=== PATIENT | female | born 1935 | race Two or more races ===

== ENCOUNTER 2025-02-08 19:34 | Inpatient (IN) | payer OTHER ==
[~2025-02-08] VITALS: Ht 152.4 cm; Wt 45.4 kg
[2025-02-08 19:45] VITALS: TEMP 96.8
[2025-02-08] MEDS: HEPARIN 1,000 UNITS/ml 1ML VIAL IV ONE (19:57)
[2025-02-08] MEDS: ATROPINE SULF 1 MG/10ml SYR IV ONE (19:57)
[2025-02-08] MEDS: InsuLIN REG 1unit/0.01ml Soln (100units/ml) IV ONE (19:57)
[2025-02-08] MEDS: HEPARIN 1,000 UNITS/ml 1ML VIAL ONE (19:58)
[2025-02-08] MEDS: DOPamine 1600MCG/ML D5W 250 ML IV ONE ×2 (19:58)
[2025-02-08] MEDS: LIDOCAINE 2%HCL (LOCAL ANESTH.) INJ 20ML MDV ONE (20:03)
[2025-02-08] MEDS: MIDAZOLAM HCL 2MG/2ML 2ml VIAL (1mg/ml) ONE (20:03)
[2025-02-08] MEDS: VERAPAMIL 2.5MG/ML INJ 2ML VIAL IV ONE (20:03)
--- NOTE | 2025-02-08 20:05 | DVH ---
EXAM: XR Chest, 1 View CLINICAL INDICATION: CP TECHNIQUE: Frontal view of the chest. COMPARISON: None FINDINGS: LUNGS AND PLEURAL SPACES: Unremarkable. No consolidation. No pneumothorax. HEART: Cardiomegaly without overt failure. MEDIASTINUM: Unremarkable. Normal mediastinal contour. BONES/JOINTS: Unremarkable. No acute fracture. OTHER FINDINGS: . . IMPRESSION: Cardiomegaly without overt failure.
[2025-02-08] MEDS: ANGIOMAX 250 MG VIAL IV ONE (20:15)
--- NOTE | 2025-02-08 20:15 | DVHINCON2 ---
Date of service: February 08, 2025 History of Present Illness 89 y o F with dementia, DM , frailty brought in for inferior stemi in slow afib. pt is DNR and DNI and daughter at bedside. Past Medical History reviewed Allergies: Coded Allergies: Penicillins (Verified Allergy, Unknown, 02/08/25) Review of Systems not obtained Vital Signs Vital Signs Date Time Temp Pulse Resp B/P (MAP) Pulse Ox O2 Delivery O2 Flow Rate FiO2 02/08/25 19:58 98/54 02/08/25 19:41 96.9 48 18 96 96.9 Physical Exam somnolent altered , lethargic s1 s2 irregular bradycardic diffuse rhonchi abd soft nt/nd no edema fral Assessment STEMI slow afib shock dementia altered mental status DM , severe hyperglycemia Plan/Recommendation pt is extremely high risk for cath at this time and chance of survival is potentially quite poor after a long talk with daugther, family doesnt want to pursue aggressive measures they want a manager client service to come they want meds for now, dopamine gtt and atropine DNI pain control consider hospice home ideally per family if pt becomes HD stable they very clearly understand not going to farm laborer and result in given inferior stemi and risk of CHB RN with me at bedside dr riggins at bedside 90 mins critical care time spent Plan discussed with: Patient, Daughter, Other (rn) JANAE WRIGHT MD February 08, 2025 20:15
[2025-02-08 20:28] LABS: Basophils # (auto) 0 10 ^3/uL (0-0.2); Basophils % (auto) 0.2 % (0.0-2.0); Eosinophils # (auto) 0 10 ^3/uL (0-0.8); Hematocrit 41.3 % (36.0-46.0); Hemoglobin 13.2 g/dL (12.2-16.2); Lymphocytes # (auto) 0.9 10 ^3/uL (0.4-5.4); Lymphocytes % (auto) 8.9 % (10.0-50.0); Mean Corpuscular Hemoglobin 29.4 pg (28.0-32.0); Mean Corpuscular Hgb Conc. 32.1 g/dL (32.0-36.0); Mean Corpuscular Volume 91.6 fL (80.0-100.0); Monocytes # (auto) 0.3 10 ^3/uL (0-1.3); Monocytes % (auto) 2.6 % (0.0-12.0); Neutrophils # (auto) 8.8 10 ^3/uL (1.6-8.6); Neutrophils % (auto) 88.3 % (37.0-80.0); Nucleated Red Blood Cells % 0.1 %; Platelet Count (auto) 157 10^3/uL (140-450); Red Blood Cells 4.51 10^6/uL (4.0-5.20); Red Cell Distribution Width 14.1 % (11.8-14.3)
[2025-02-08] MEDS: NOREPINEPHRINE 8 MG/250ML KIT 250 ML IV SCH (20:30)
[2025-02-08] MEDS: fentaNYL CITRATE 100 MCG/2 ML VL ONE (20:37)
[2025-02-08 20:46] LABS: Albumin 3.6 g/dL (3.2-4.8); Alkaline Phosphatase 112 U/L (46-116); Anion Gap 18 (5-15); BUN/Creatinine Ratio 13.6 (10.0-20.0); Blood Urea Nitrogen 16 mg/dL (9-23); Calcium 9.1 mg/dL (8.7-10.4); Chloride 102 mmol/L (98-107); INR 1.07 (0.9-1.15); Magnesium 2.1 mg/dL (1.6-2.6); Partial Thromboplastin Time 25.9 SEC (24.5-34.5); Potassium 4.8 mmol/L (3.5-5.1); Prothrombin Time 11.3 sec (9.3-11.8); Total Protein 5.7 g/dL (5.7-8.2)
[2025-02-08] MEDS: DOBUTamine 1000MCG/ML 250 ML IV ONE (20:46)
[2025-02-08 20:54] VITALS: PULSE 65; RESP 12; O2SAT 97
--- NOTE | 2025-02-08 21:02 | ED.PDOC ---
History of Present Illness HPI Comments 89-year-old female who comes in with chief complaint of chest pain today. According to the family, the patient is started to complain of some chest pain at approximately 2:30 p.m. this afternoon. The patient described the chest pain as crushing in nature. She does have a history of dementia and is somewhat of a poor historian but was able to describe her chest pain. She is complaining of some shortness a breath. There has been some mild nausea as well as vomiting. Patient is having some diaphoresis as well as somewhat pale and when the paramedics placed her on the monitor, the patient was bradycardic in the 30s. The patient was also hypotensive and was given some normal saline and the blood pressure did come up but never above 90s systolic. For the nausea, the patient was given Zofran 4 mg IV push. The patient was also given aspirin 324 mg by mouth EN route. EN route, the patient also had an Accu-Chek of 524. Upon arrival, the patient is still somewhat pale. An EKG was done immediately and a STEMI was called after sending the EKG to Dr. Caruso. Chief Complaint: STEMI Time Seen by MD: 19:36 Reviewed Notes: Nurses Notes, Contract Paralegal Notes, Medications, Allergies (Allergies to penicillin) Allergies: Coded Allergies: Penicillins (Verified Allergy, Unknown, 02/08/25) Information Source: Patient, Emergency Med Personnel Mode of Arrival: EMS Severity: Moderate Timing: Hours Duration: Since onset Prehospital treatment: 12 Lead EKG, Accucheck (524), ASA, Beef Lugger, IVF, Other (Normal saline bolus) Location: Left-sided chest pain that has crushing in nature Associated signs and symptoms Shortness a breath with nausea and vomiting so as well as pale and being di aphoretic Past Medical History PAST MEDICAL HISTORY: Dementia, DM, HTN Surgical History: Unobtainable TECHNICIAN BIOLOGICAL HEALTH History: No Pertinent TECHNICIAN BIOLOGICAL HEALTH History Family History Family History: No family hx of Cancer, No family hx of DM, No family hx of Heart anshul Social History Smoker: Non-Smoker Alcohol: Denies ETOH Use Drugs: Denies Drug Use Lives In: Home Constitutional: denies: chills, diaphoresis, fatigue, fever, malaise, sweats, weakness, others EENTM: denies: blurred vision, double vision, ear bleeding, ear discharge, ear drainage, ear pain, ear ringing, eye pain, eye redness, hearing loss, mouth pain, mouth swelling, nasal discharge, nose bleeding, nose congestion, nose pain, photophobia, tearing, throat pain, throat swelling, voice changes, others Respiratory: reports: shortness of breath; denies: cough, hemoptysis, orthopnea, SOB at rest, SOB with excertion, stridor, wheezing, others Cardiovascular: reports: chest pain, syncope; denies: dizzy spells, diaphoresis, Dyspnea on exertion, edema, irregular heart beat, left arm pain, lightheadedness, palpitations, PND, others Gastrointestinal: denies: abdomen distended, abdominal pain, blood streaked b owels, constipated, diarrhea, dysphagia, difficulty swallowing, hematemesis, melena, nausea, poor appetite, poor fluid intake, rectal bleeding, rectal pain, vomiting, others Genitourinary: denies: abnormal vagina bleeding, burning, dyspareunia, dysuria, flank pain, frequency, hematuria, incontinence, pain, , vagina discharge, urgency, others Neurological: denies: dizziness, fainting, headache, left sided numbness, left sided weakness, numbness, paresthesia, pre-existing deficit, right sided numbness, right sided weakness, seizure, speech problems, tingling, tremors, weakness, others Musculoskeletal: denies: back pain, gout, joint pain, joint swelling, muscle pain, muscle stiffness, neck pain, others Integumetry: denies: bruises, change in color, change in hair/nails, dryness, laceration, lesions, lumps, rash, wounds, others Allergic/Immunocompromised: denies: Difficulty Healing, Frequent Infections, Hives, Itching, others Hematologic/Lymphatic: denies: anemia, blood clots, easy bleeding, easy brui sing, swollen glands, others Endocrine: denies: excessive hunger, excessive sweating, excessive thirst, ex cessive urination, flushing, intolerance to cold, intolerance to heat, unexplained weight gain, unexplained weight loss, others Psychiatric: denies: anxiety, bipolar disorder, depression, hopeless, panic disorder, schizophrenia, sleepless, suicidal, others Physical Exam General Appearance: Moderate Distress, Thin HEENT: Pale Conjuntivae (L), Pale Conjuntivae (R), Pharynx Normal, TMs Normal Neck: Full Range of Motion, Non-Tender, Normal, Normal Inspection Respiratory: Chest Non-Tender, Lungs Clear, No Accessory Muscle Use, No Respiratory Distress, Normal Breath Sounds Cardiovascular: Bradycardia, No Edema, No JVD, No Murmur, No Gallop Breast Exam: Deferred Gastrointestinal: No Organomegaly, Non Tender, No Pulsatile Mass, Normal Bowel Sounds, Soft Genitalia: Deferred Pelvic: Deferred Rectal: Deferred Extremities: No calf tenderness, Normal capillary refill, No pedal edema Musculoskeletal : Apperance: Normal Neurologic: supervisor fruit grading II-XII nml as Tested, Motor Weakness, Normal Affect, Normal Mood, No Sensory Deficits, Other (The patient is somewhat alert) Cerebellar Function: Unable to Test Reflexes: Normal Skin: Dry, Pallor, Warm Lymphatic: No Adenopathy Was a procedure done? Was a procedure done?: No EKG EKG : Pulse Rate (adult): 40 [place]: Normal Cardiac Rhythm: SB ST: Inf, Infarct (Inferior) Differential Dx Considerations may include: Myocardial infarction, dehydration, generalized weakness X-Ray, Labs, Meds, VS Vital Signs Date Time Temp Pulse Resp B/P (MAP) Pulse Ox O2 Delivery O2 Flow Rate FiO2 02/08/25 20:00 65 02/08/25 19:58 98/54 02/08/25 19:41 96.9 48 18 89/46 (60) 96 96.9 02/08/25 19:34 56 Lab Test 02/08/25 19:54 Range/Units White Blood Count Pending Red Blood Count Pending Hemoglobin Pending Hematocrit Pending Mean Corpuscular Volume Pending Mean Corpuscular Hemoglobin Pending Mean Corpuscular Hemoglobin Concent Pending Red Cell Distribution Width Pending Platelet Count Pending Mean Platelet Volume Pending Neutrophils (%) (Auto) Pending Lymphocytes (%) (Auto) Pending Monocytes (%) (Auto) Pending Basophils (%) (Auto) Pending Neutrophils # (Auto) Pending Lymphocytes # (Auto) Pending Monocytes # (Auto) Pending Prothrombin Time Pending Prothrombin Time INR Pending Activated Partial Thromboplast Time Pending Sodium Level Pending Potassium Level Pending Chloride Level Pending Carbon Dioxide Level Pending Anion Gap Pending Blood Urea Nitrogen Pending Creatinine Pending Glomerular Filtration Rate Calc Pending BUN/Creatinine Ratio Pending Serum Glucose Pending Calcium Level Pending Magnesium Level Pending Total Bilirubin Pending Aspartate Amino Transferase (AST) Pending Alanine Aminotransferase (ALT) Pending Alkaline Phosphatase Pending Troponin I High Sensitivity Pending Total Protein Pending Albumin Pending Current Medications Medications (Trade) Dose Ordered Sig/Marilee Route Start Time Stop Time Status Last Admin Heparin Sodium (Porcine) 4,000 units ONCE ONCE IV 02/08/25 19:45 02/08/25 19:46 DC 02/08/25 19:57 Atropine Sulfate (Atropine Sulfate) 0.5 mg ONCE ONCE IV 02/08/25 19:45 02/08/25 19:46 DC 02/08/25 19:57 Insulin Human Regular (InsuLIN R) 5 units ONCE ONCE IV 02/08/25 19:45 02/08/25 19:46 DC 02/08/25 19:57 Dopamine HCl/ Dextrose 250 ml @ 8.513 mls/ hr Q24H ONCE IV 02/08/25 20:00 02/09/25 19:59 02/08/25 19:58 IV Hep-Lock was established. The patient was given normal saline as a bolus to support the blood pressure The patient was bradycardic so was given atropine 0.5 mg IV push We contacted Dr. Caruso who have and she came in and saw the patient. Patient remains bradycardic with changes consistent with an inferior myocardial infarction The patient was given heparin 4000 units IV push The patient was also given insulin 5 units IV push for the hyperglycemia The patient's was started on dopamine with collaboration of the reamer hand. The patient's heart rate seems to be increasing somewhat Dr. Caruso did speak with the patient's daughter who is her dairy bacteriologist and power of epic willow specialist. At this time, the patient is DNR and they are not going to be taking the patient to the laboratory clerk. The labs will be followed by the hospitalist we are doing the admission Images Reviewed?: Images reviewed and evaluated by me Time of 1ST Reevaluation: 20:59 Reevaluation 1ST: Unchanged Patient Education/Counseling: Diagnosis, Treatment, Prognosis Family Education/Counseling: Diagnosis, Treatment, Prognosis Departure 1 Departure Time of Disposition: 21:01 Impression: Primary Impression: STEMI (ST elevation myocardial infarction) Qualified Codes: I21.3 - ST elevation (STEMI) myocardial infarction of unspecified site Disposition: ADMITTED INPATIENT Admit to: [facility] Condition: Fair Critical Care Note Critical Care Time?: Yes (55 min-critical care time only) Stability Stability form required: Yes Unstable for transfer: ICU, CCU, PCU, [facility] (Intensive VS monitoring), ED Physician Assesment (Clinical assesment) Heart Score Heart Score: Heart Score Response (Comments) Value History Highly Suspicious [address]-Deviation 2 Age >65 2 Risk Factors >3 or Hx ASHD 2 Troponin N/A 0 Total 8 JERRY MCCLURE MD February 08, 2025 21:02
[2025-02-08] MEDS: ASPirin 81 mg TAB PO SCH (21:07)
[2025-02-08] MEDS: ATORVASTATIN 20 MG TAB PO ONE (21:07)
[2025-02-08] MEDS: CLOPIDOGREL BISULFATE 75 MG TAB PO ONE (21:07)
[2025-02-08 21:12] LABS: Alanine Aminotransferase 83 U/L (7-40); Aspartate Aminotransferase 215 U/L (13-40); Bilirubin, Total 1.4 mg/dL (0.2-1.0); Carbon Dioxide 13 mmol/L (20-31); Sodium 133 mmol/L (136-145)
[2025-02-08 21:18] LABS: Glucose 661 mg/dL (74-106)
[2025-02-08 22:10] LABS: Base Excess -16.9 mmol/L (-2.0-3.0)
[2025-02-08] MEDS: SODIUM BICARB 8.4% 50Meq/50ml SYR Vial IV ONE (22:24)
[2025-02-08] MEDS: LORazepam 2MG/ML-1ML VIAL ONE (22:35)
[2025-02-08] MEDS: LORazepam 2MG/ML-1ML VIAL IV ONE (22:35)
[2025-02-08 22:41] VITALS: BP 75/47; PULSE 55; RESP 24; O2SAT 96
[2025-02-08] MEDS: SODIUM BICARB 50mEq/50ml Vial 100 ML in SOD CHL 0.45% 1,000 ML IV ONE (22:42)
[2025-02-08] MEDS: ENOXAPARIN SOD 60 MG/0.6 ML SYRINGE SC ONE (23:18)
[2025-02-09] MEDS ORDERED: NITROGLYCERIN 0.4 MG SL TAB SL PRN
--- NOTE | 2025-02-09 00:15 | DVHHP2 ---
History of Present Illness History of Present Illness Patient is 89 years old female with a past medical history of hypertension, diabetes mellitus, dementia was brought in by the EMS due to chest pain. Patient is a poor historian, information was gathered from toxin with the family and from reviewing the chart. According with the family patient started having chest pain on 2:30 p.m. on 02/08/2025, central crushing in nature. Associated shortness of breaths some nausea and vomiting mainly food content, no blood. Patient also endorsed diaphoresis and looked pale. On arrival patient has had bradycardia heart rate around 30s. Patient's blood pressure also soft hypotensive patient was given IV normal saline but it never went up to 90s. ER acute joint revealed blood sugar 524. EKG done immediately and STEMI code was called after sending him to Dr. Caruso. Patient and family does not want any intervention. Patient's family agreed for medical management. Workup [place] [address], troponin 0 sodium 133, serum creatinine 1.18, serum glucose 661, lactic acid 7.2, total bilirubin 1.4, AST 215, ALT 83. ABG REVEALED PH 7.253, PCO2 18.1, PO2 126.9, HCO3-7.8. Past Social History Lives with daughter, denies smoking/alcoholism/drug abuse Review of Systems Review of Systems Allergy- PCN Details of the review of other system could not be obtained has a patient patient's poor mental status and patient is poor historian Allergies: Coded Allergies: Penicillins (Verified Allergy, Unknown, 02/08/25) Medications Current Medications Medications Dose Ordered Sig/Marilee Route Start Time Stop Time Status Last Admin Dose Admin Aspirin 81 mg DAILY PO 02/08/25 20:30 02/08/25 21:07 81 MG Norepinephrine Bitartrate 250 ml @ 3.75 mls/hr Q24H IV 02/08/25 20:30 02/08/25 22:34 3.75 MLS/HR Nitroglycerin 0.4 mg Q5MINP PRN SL 02/09/25 00:00 UNV Morphine Sulfate 2 mg Q30M PRN IV 02/09/25 00:00 UNV Exam Vital Signs Vital Signs Date Time Temp Pulse Resp B/P (MAP) Pulse Ox O2 Delivery O2 Flow Rate FiO2 02/08/25 23:30 62 41 80/52 (61) 100 02/08/25 22:41 25.0 35 02/08/25 22:41 Hi-Flow Heated NC+ 02/08/25 19:45 96.8 96.8 Exam General examination- patient in respiratory distress HEENT- PEERLA, no acute nasal discharge Cardiovascular- S1-S2 audible, systolic murmur+ Respiratory- with the lung crackles+ Gastrointestinal-nontender, bowel sound+. Nondistended Musculoskeletal-no acute joint swelling or tenderness or redness Lower extremity- leg edema Neurological- cranial nerves intact, no acute dysarthria or dysphagia Psychiatry- denies depression or SI or HI Skin- no acute rash or purpura Labs/Xrays Labs Test 02/08/25 21:46 02/08/25 19:54 Range/Units Blood Gas Specimen Type Arterial Blood Gas Sample Site Right radial Blood Gas Patient Temperature 37.0 Arterial Blood Date Drawn [id number] Arterial Blood pH 7.253 L 7.350-7.450 Arterial Blood Partial Pressure CO2 18.1 *L 32.0-45.0 mmHg Arterial Blood Partial Pressure O2 126.9 H 83.0-108.0 mmHg Arterial Blood HCO3 7.8 L 21.0-28.0 mmol/L Arterial Blood Oxygen Saturation 97.9 94.0-98.0 % Arterial Blood Base Excess -16.9 L -2.0-3.0 mmol/L Arterial Blood Oxyhemoglobin 97.2 94.0-98.0 % Arterial Blood Carboxyhemoglobin 0.1 L 0.5-1.5 % Arterial Blood Methemoglobin 0.6 0.0-1.5 % Olivier Test Yes Blood Gas Total Hemoglobin 14.50 12.0-16.0 g/dL Blood Gas Modality Nasal cannula FiO2 % 32.0 Blood Gas Critical Value Read Back Yes Blood Gas Notified Whom michaela Caruso md Blood Gas Notified Time [id number] Blood Gas Notified By White Blood Count 10.0 4.4-10.8 10^3/uL Red Blood Count 4.51 4.0-5.20 10^6/uL Hemoglobin 13.2 12.2-16.2 g/dL Hematocrit 41.3 36.0-46.0 % Mean Corpuscular Volume 91.6 80.0-100.0 fL Mean Corpuscular Hemoglobin 29.4 28.0-32.0 pg Mean Corpuscular Hemoglobin Concent 32.1 32.0-36.0 g/dL Red Cell Distribution Width 14.1 11.8-14.3 % Platelet Count 157 140-450 10^3/uL Mean Platelet Volume 9.7 6.9-10.8 fL Neutrophils (%) (Auto) 88.3 H 37.0-80.0 % Lymphocytes (%) (Auto) 8.9 L 10.0-50.0 % Monocytes (%) (Auto) 2.6 0.0-12.0 % Eosinophils (%) (Auto) 0.0 0.0-7.0 % Basophils (%) (Auto) 0.2 0.0-2.0 % Neutrophils # (Auto) 8.8 H 1.6-8.6 10 ^3/uL Lymphocytes # (Auto) 0.9 0.4-5.4 10 ^3/uL Monocytes # (Auto) 0.3 0-1.3 10 ^3/uL Eosinophils # (Auto) 0 0-0.8 10 ^3/uL Basophils # (Auto) 0 0-0.2 10 ^3/uL Nucleated Red Blood Cells 0.1 % Prothrombin Time 11.3 9.3-11.8 sec Prothrombin Time INR 1.07 0.9-1.15 Activated Partial Thromboplast Time 25.9 24.5-34.5 SEC Sodium Level 133 L 136-145 mmol/L Potassium Level 4.8 3.5-5.1 mmol/L Chloride Level 102 98-107 mmol/L Carbon Dioxide Level 13 L 20-31 mmol/L Anion Gap 18 H 5-15 Blood Urea Nitrogen 16 9-23 mg/dL Creatinine 1.18 H 0.550-1.02 mg/dL Glomerular Filtration Rate Calc 45 >90 mL/min BUN/Creatinine Ratio 13.6 10.0-20.0 Serum Glucose 661 *H 74-106 mg/dL Calcium Level 9.1 8.7-10.4 mg/dL Magnesium Level 2.1 1.6-2.6 mg/dL Total Bilirubin 1.4 H 0.2-1.0 mg/dL Aspartate Amino Transferase (AST) 215 H 13-40 U/L Alanine Aminotransferase (ALT) 83 H 7-40 U/L Alkaline Phosphatase 112 46-116 U/L Troponin I High Sensitivity 49141 *H </=34 ng/L Total Protein 5.7 5.7-8.2 g/dL Albumin 3.6 3.2-4.8 g/dL Assessment/Plan Assessment/Plan Assessment and plan Acute chest pain likely due to STEMI Acute STEMI Suspected acute heart failure systolic versus diastolic Acute hypoxic respiratory failure likely due to acute heart failure/aspiration pneumonia Cardiogenic shock Suspected septic shock Lactic acidosis Suspected aspiration pneumonitis Metabolic encephalopathy likely due to DKA/aspiration pneumonitis Suspected metabolic acidosis with respiratory compensation, Uncontrolled diabetes mellitus/diabetic ketoacidosis Hypertension Hyponatremia Transaminitis CONCHITA likely due to VMN Dementia Plan Status post cardiology consult, patient was seen by Dr. Caruso Patient's family denied intervention for STEMI Plan is to continue medical management NPO as patient aspirated Continue vasopressor as prescribed Continue IV fluid prescribed On Levophed, dopamine, dobutamine Hydrocortisone 50 mg IV t.i.d. Ordered insulin drip as per protocol Ordered antibiotic meropenem and vancomycin as per pharmacy protocol repeat CBC, CMP, chest x-ray, ABG Pending Echo 2D Status post central line done in the right internal jugular vein In ICU status Goals of care, Code status DNI/DNR ; discussed with >15 minutes PUD prophylaxis: Pantoprazole DVT prophylaxis: heparin Plan discussed with Dr. Mcrae , nursing staff, Total time spent on patient evaluation, chart review, assessment and plan, discussion discussion >65 minutes Plan discussed with: Patient, Son, Other (RN) My Orders Orders - MAKSIM ESTRADA RESIDENT Procedure Category Date Status Time Admit ADMIT 02/08/25 Transmitted 23:59 Npo (Nothing By DIET 02/09/25 Transmitted Mouth) Diet Breakfast Nitroglycerin PHA 02/09/25 Logged Sublingual (Ntrostat 00:00 Morphine Sulfate PHA 02/09/25 Logged Injection 00:00 Oxygen By Nasal RT 02/08/25 Transmitted Cannula 23:59 Stat Ekg For Chest CHRISTIANO 02/08/25 In Process Pain 23:59 Notify Of Changes CHRISTIANO 02/08/25 In Process From Base 23:59 Equity Analyst For CHRISTIANO 02/08/25 In Process 24 Hours 23:59 Emergency Dysrhythmia CHRISTIANO 02/08/25 In Process Protocol 23:59 Rhythm Strips Once CHRISTIANO 02/08/25 In Process Every Shift 23:59 Date of Service: February 08, 2025 Billing Provider: MAUREEN MCRAE MD Common Visit Codes: 88441-KKSINLO INP/OBS CARE (HIGH) Secondary Visit Codes: 82289-[id number] CARE PLAN 30 MINUTES MAKSIM ESTRADA RESIDENT February 09, 2025 00:15
[2025-02-09 00:26] VITALS: BP 83/55; PULSE 67; RESP 30; O2SAT 97
[2025-02-09 00:40] LABS: Lactic Acid w/Reflex 7.2 mmol/L (0.4-2.0)
[2025-02-09] MEDS ORDERED: DEXTROSE (50%) 50ML SYRG IV PRN ×2 (01:00→01:30)
[2025-02-09] MEDS ORDERED: MORPHINE SULFATE INJ 2 MG/ml SYRG IV PRN ×2 (01:00)
[2025-02-09] MEDS ORDERED: SODIUM CHLORIDE 0.9% 1,000 ML IV SCH ×5 (01:00→07:30)
[2025-02-09] MEDS: LORazepam 2MG/ML-1ML VIAL IV ONE (01:15)
[2025-02-09] MEDS ORDERED: VANCOMYCIN PER PHARMACY 0 MG IV SCH (01:30)
[2025-02-09 01:45] LABS: Base Excess -19.4 mmol/L (-2.0-3.0)
[2025-02-09] MEDS: HYDROCORTISONE SOD SUCC 100 MG/2ML INJ VIAL IV ONE (01:45)
--- NOTE | 2025-02-09 02:11 | DVH ---
CHEST RADIOGRAPH Indication: CP Technique: Single frontal view of the chest was obtained COMPARISON: XY CHEST PORTABLE on DOS: 02/08/25 FINDINGS: Lines and Tubes: None Lungs: Stable moderate diffuse increased prominence of the pulmonary vasculature and interstitium. No evidence of focal consolidation. Pleura: No effusion. No pneumothorax. Cardiomediastinal contours: Stable cardiomegaly. Bones: Unremarkable IMPRESSION: 1. Stable cardiomegaly and moderate diffuse increased prominence of the pulmonary vasculature and int erstitium.
[2025-02-09 02:51] LABS: Albumin 3.7 g/dL (3.2-4.8); Anion Gap 28 (5-15); BUN/Creatinine Ratio 13.4 (10.0-20.0); Blood Urea Nitrogen 19 mg/dL (9-23); Calcium 9.1 mg/dL (8.7-10.4); Total Protein 5.9 g/dL (5.7-8.2)
[2025-02-09] MEDS: SOD CHL 0.9%/ KCL 20MEQ 1,000 ML IV SCH (03:00)
[2025-02-09 03:04] VITALS: BP 95/75; PULSE 60; RESP 28; O2SAT 100
[2025-02-09] MEDS: ACCU-CHEK COMFORT CURVE STRIP VI SCH ×2 (03:19→06:26)
[2025-02-09 03:26] LABS: Sodium 136 mmol/L (136-145)
--- NOTE | 2025-02-09 03:26 | DVH ---
CHEST RADIOGRAPH Indication: line assessment Technique: Single frontal view of the chest was obtained COMPARISON: XY CHEST PORTABLE on DOS: 02/09/25, XY CHEST PORTABLE on DOS: 02/08/25 FINDINGS: Lines and Tubes: Right subclavian central venous access catheter tip within the right atrium. Lungs: Diminished lung volumes with exaggeration of the pulmonary vasculature. No evidence of focal c onsolidation. Pleura: No effusion. No pneumothorax. Cardiomediastinal contours: Unremarkable Bones: Unremarkable IMPRESSION: 1. No acute disease.
[2025-02-09 03:27] LABS: Alanine Aminotransferase 498 U/L (7-40); Alkaline Phosphatase 150 U/L (46-116); Aspartate Aminotransferase 1233 U/L (13-40); Bilirubin, Total 2.6 mg/dL (0.2-1.0); Carbon Dioxide 10 mmol/L (20-31); Chloride 98 mmol/L (98-107); Magnesium 2.8 mg/dL (1.6-2.6); Phosphorus 9.3 mg/dL (2.4-5.1); Potassium 5.1 mmol/L (3.5-5.1)
[2025-02-09] MEDS: INSULIN DRIP 100 UNIT/100ML 100 ML IV SCH (03:27)
[2025-02-09 03:28] LABS: Glucose 530 mg/dL (74-106)
[2025-02-09 03:45] VITALS: O2SAT 99
[2025-02-09 03:55] VITALS: PULSE 39
[2025-02-09 04:00] VITALS: BP 67/20; RESP 0
[2025-02-09] MEDS ORDERED: InsuLIN REG 1unit/0.01ml Soln (100units/ml) SC SCH (04:00)
[2025-02-09] MEDS: HYDROCORTISONE SOD SUCC 100 MG/2ML INJ VIAL IV SCH (06:00)
--- NOTE | 2025-02-09 06:14 | DVHDSRES ---
Discharge Summary Date of Admission Resident Creating Document: MAKSIM ESTRADA RESIDENT February 08, 2025 at 23:59 Date of Discharge: February 09, 2025 Admitting Diagnosis Acute CP due to STEMI Labs/Diagnostic Data: Laboratory Results Test 02/09/25 03:08 02/09/25 01:39 02/09/25 01:27 02/08/25 19:54 POC Glucose 481 mg/dl (70-106) Sodium Level 136 mmol/L (136-145) Potassium Level 5.1 mmol/L (3.5-5.1) Chloride Level 98 mmol/L (98-107) Carbon Dioxide Level 10 mmol/L (20-31) Anion Gap 28 (5-15) Blood Urea Nitrogen 19 mg/dL (9-23) Creatinine 1.42 mg/dL (0.550-1.02) Glomerular Filtration Rate Calc 36 mL/min (>90) BUN/Creatinine Ratio 13.4 (10.0-20.0) Serum Glucose 530 mg/dL (74-106) Calcium Level 9.1 mg/dL (8.7-10.4) Phosphorus Level 9.3 mg/dL (2.4-5.1) Magnesium Level 2.8 mg/dL (1.6-2.6) Total Bilirubin 2.6 mg/dL (0.2-1.0) Aspartate Amino Transferase (AST) 1233 U/L (13-40) Alanine Aminotransferase (ALT) 498 U/L (7-40) Alkaline Phosphatase 150 U/L (46-116) Total Protein 5.9 g/dL (5.7-8.2) Albumin 3.7 g/dL (3.2-4.8) Beta-Hydroxybutyric Acid 0.427 mmol/L (< 0.4) Blood Gas Specimen Type Arterial Blood Gas Sample Site Right radial Blood Gas Patient Temperature 37.0 Arterial Blood Date Drawn [id number] Arterial Blood pH 7.218 (7.350-7.450) Arterial Blood Partial Pressure CO2 14.2 mmHg (32.0-45.0) Arterial Blood Partial Pressure O2 421.7 mmHg (83.0-108.0) Arterial Blood HCO3 5.7 mmol/L (21.0-28.0) Arterial Blood Oxygen Saturation 99.6 % (94.0-98.0) Arterial Blood Base Excess -19.4 mmol/L (-2.0-3.0) Arterial Blood Oxyhemoglobin 98.7 % (94.0-98.0) Arterial Blood Carboxyhemoglobin 0.3 % (0.5-1.5) Arterial Blood Methemoglobin 0.6 % (0.0-1.5) Olivier Test Yes Blood Gas Total Hemoglobin 14.70 g/dL (12.0-16.0) Blood Gas Liter Flow 40.00 Blood Gas Modality High flow FiO2 % 40.0 Blood Gas Critical Value Read Back Yes Blood Gas Notified Whom Blood Gas Notified Time [id number] Blood Gas Notified By White Blood Count 10.0 10^3/uL (4.4-10.8) Red Blood Count 4.51 10^6/uL (4.0-5.20) Hemoglobin 13.2 g/dL (12.2-16.2) Hematocrit 41.3 % (36.0-46.0) Mean Corpuscular Volume 91.6 fL (80.0-100.0) Mean Corpuscular Hemoglobin 29.4 pg (28.0-32.0) Mean Corpuscular Hemoglobin Concent 32.1 g/dL (32.0-36.0) Red Cell Distribution Width 14.1 % (11.8-14.3) Platelet Count 157 10^3/uL (140-450) Mean Platelet Volume 9.7 fL (6.9-10.8) Neutrophils (%) (Auto) 88.3 % (37.0-80.0) Lymphocytes (%) (Auto) 8.9 % (10.0-50.0) Monocytes (%) (Auto) 2.6 % (0.0-12.0) Eosinophils (%) (Auto) 0.0 % (0.0-7.0) Basophils (%) (Auto) 0.2 % (0.0-2.0) Neutrophils # (Auto) 8.8 10 ^3/uL (1.6-8.6) Lymphocytes # (Auto) 0.9 10 ^3/uL (0.4-5.4) Monocytes # (Auto) 0.3 10 ^3/uL (0-1.3) Eosinophils # (Auto) 0 10 ^3/uL (0-0.8) Basophils # (Auto) 0 10 ^3/uL (0-0.2) Nucleated Red Blood Cells 0.1 % Prothrombin Time 11.3 sec (9.3-11.8) Prothrombin Time INR 1.07 (0.9-1.15) Activated Partial Thromboplast Time 25.9 SEC (24.5-34.5) Lactic Acid Level 7.2 mmol/L (0.4-2.0) Troponin I High Sensitivity 52848 ng/L (</=34) Other Laboratory Tests 02/09/25 01:39 02/08/25 19:54 Brief Hx & Hospital Course: Patient is 89 years old female with a past medical history of hypertension, diabetes mellitus, dementia was brought in by the EMS due to chest pain. Patient is a poor historian, information was gathered from toxin with the family and from reviewing the chart. According with the family patient started having chest pain on 2:30 p.m. on 02/08/2025, central crushing in nature. Associated shortness of breaths some nausea and vomiting mainly food content, no blood. Patient also endorsed diaphoresis and looked pale. On arrival patient has had bradycardia heart rate around 30s. Patient's blood pressure also soft hypotensive patient was given IV normal saline but it never went up to 90s. ER acute joint revealed blood sugar 524. EKG done immediately and STEMI code was called after sending him to Dr. Caruso. Patient and family does not want any intervention. Patient's family agreed for medical management. Workup [place] [address], troponin 0 sodium 133, serum creatinine 1.18, serum glucose 661, lactic acid 7.2, total bilirubin 1.4, AST 215, ALT 83. ABG REVEALED PH 7.253, PCO2 18.1, PO2 126.9, HCO3-7.8. Patients code status was DNI/DNR. Patient had medical management. In treatment course patient developed cardiogenic shock, suspected septic shock, suspected aspiration pneumonitis. Patient was on Levophed, dopamine, dobutamine and also on IV antibiotic. Central line was placed. Patient was on insulin drip. Patient's condition deteriorated gradually. Patient found to have pulseless, no breathing, no pupillary or corneal replace EKG straight line. patient on 02/09/25 at 04:03 am. Total time spent >30 minutes Operations or Procedures [place] [address] Ph: [phone] DIAGNOSTIC IMAGING Diagnostic Imaging Report : [id number] Signed PATIENT: CAREY COBOS ACCT: [id number] UNIT: [id number] : 1935 LOC: ER ROOM / BED: / AGE / SEX: 89 / F ADM STATUS: REG ER SERVICE 35 ORDERING PHYSICIAN: JERRY MCCLURE MD PROCEDURE(s): CXRP - CHEST PORTABLE REASON: CP ORDER NUMBER(s): [id number], ACCESSION NUMBER(s): [id number] EXAM: XR Chest, 1 View CLINICAL INDICATION: CP TECHNIQUE: Frontal view of the chest. COMPARISON: None FINDINGS: LUNGS AND PLEURAL SPACES: Unremarkable. No consolidation. No pneumothorax. HEART: Cardiomegaly without overt failure. MEDIASTINUM: Unremarkable. Normal mediastinal contour. BONES/JOINTS: Unremarkable. No acute fracture. OTHER FINDINGS: . . IMPRESSION: Cardiomegaly without overt failure. ATED BY: ESTHER CORBIN MD DICTATED DATE/TIME: 02/08/252001 SIGNED BY: ESTHER CORBIN MD SIGNED DATE/TIME: 02/08/252001 CC: [place] [address] Ph: [phone] DIAGNOSTIC IMAGING Diagnostic Imaging Report : [id number] Signed PATIENT: CAREY COBOS ACCT: [id number] UNIT: [id number] : 1935 LOC: OVERFLOW ROOM / BED: [facility]-ER / A AGE / SEX: 89 / F ADM STATUS: ADM IN SERVICE 3 ORDERING PHYSICIAN: MAKSIM ESTRADA PROCEDURE(s): CXR1 - CHEST XRAY 1 VIEW REASON: line assessment ORDER NUMBER(s): [id number], ACCESSION NUMBER(s): [id number] CHEST RADIOGRAPH Indication: line assessment Technique: Single frontal view of the chest was obtained COMPARISON: XY CHEST PORTABLE on DOS: 02/09/25, XY CHEST PORTABLE on DOS: 02/08/25 FINDINGS: Lines and Tubes: Right subclavian central venous access catheter tip within the right atrium. Lungs: Diminished lung volumes with exaggeration of the pulmonary vasculature. No evidence of focal consolidation. Pleura: No effusion. No pneumothorax. Cardiomediastinal contours: Unremarkable Bones: Unremarkable IMPRESSION: 1. No acute disease. ATED BY: MANUEL HARDEN MD DICTATED DATE/TIME: 02/09/25322 SIGNED BY: MANUEL HARDEN MD SIGNED DATE/TIME: 02/09/25322 CC: Final Diagnosis/Problems List Acute chest pain likely due to STEMI Acute STEMI Suspected acute heart failure systolic versus diastolic Acute hypoxic respiratory failure likely due to acute heart failure/aspiration pneumonia Cardiogenic shock Suspected septic shock Lactic acidosis Suspected aspiration pneumonitis Metabolic encephalopathy likely due to DKA/aspiration pneumonitis Suspected metabolic acidosis with respiratory compensation, Uncontrolled diabetes mellitus/diabetic ketoacidosis Hypertension Hyponatremia Transaminitis CONCHITA likely due to VMN Dementia Discharge Disposition: Discharge Statement: "Patient was advised to return to the ER or call 911 if any headaches, dizziness, shortness of breath, chest pain, abdominal pain, bleeding, fevers, or worsening of medical condition. Patient was counseled about treatment plan, medications, possible side effects, patient�verbalized understanding. All questions were answered to the best of my ability. This discharge took greater then 30 minutes in planning, reviewing documentation, counseling the patient, and discussing with other team members." ASSESSMENT ASSESSMENT Assessment MAKSIM ESTRADA RESIDENT February 09, 2025 06:13
[2025-02-09] MEDS: INSULIN LANTUS (GLARGINE) 1 /0.01ml (100units/ml) SC ONE (06:25)
--- NOTE | 2025-02-09 06:25 | DVHHP2 ---
History of Present Illness History of Present Illness Patient is 89 years old female with a past medical history of hypertension, diabetes mellitus, dementia was brought in by the EMS due to chest pain. Patient is a poor historian, information was gathered from toxin with the family and from reviewing the chart. According with the family patient started having chest pain on 2:30 p.m. on 02/08/2025, central crushing in nature. Associated shortness of breaths some nausea and vomiting mainly food content, no blood. Patient also endorsed diaphoresis and looked pale. On arrival patient has had bradycardia heart rate around 30s. Patient's blood pressure also soft hypotensive patient was given IV normal saline but it never went up to 90s. ER acute joint revealed blood sugar 524. EKG done immediately and STEMI code was called after sending him to Dr. Caruso. Patient and family does not want any intervention. Patient's family agreed for medical management. Workup [place] I [address], troponin 0 sodium 133, serum creatinine 1.18, serum glucose 661, lactic acid 7.2, total bilirubin 1.4, AST 215, ALT 83. ABG REVEALED PH 7.253, PCO2 18.1, PO2 126.9, HCO3-7.8. Past Medical History hypertension, diabetes mellitus, dementia Past Surgical History Knee surgery Past Social History Lives with daughter, denies smoking/alcoholism/drug abuse Review of Systems Review of Systems Allergy- PCN Details of the review of other system could not be obtained has a patient patient's poor mental status and patient is poor historian Allergies: Coded Allergies: Penicillins (Verified Allergy, Unknown, 02/08/25) Medications Current Medications Medications Dose Ordered Sig/Marilee Route Start Time Stop Time Status Last Admin Dose Admin Aspirin 81 mg DAILY PO 02/08/25 20:30 02/08/25 21:07 81 MG Norepinephrine Bitartrate 250 ml @ 3.75 mls/hr Q24H IV 02/08/25 20:30 02/08/25 22:34 3.75 MLS/HR Nitroglycerin 0.4 mg Q5MINP PRN SL 02/09/25 00:00 Morphine Sulfate 2 mg Q30M PRN IV 02/09/25 00:00 Morphine Sulfate 2 mg Q2HPRN PRN IV 02/09/25 01:00 Diagnostic Test (Pha) 1 strip IQ4HR 02/09/25 04:00 Dextrose 50 ml UD PRN IV 02/09/25 01:00 Meropenem 50 ml @ 17 mls/hr Q8HR IV 02/09/25 06:00 UNV Vancomycin HCl 0 ml @ 0 mls/hr UD IV 02/09/25 01:30 UNV Insulin Human (Reg)/Sodium Chloride 100 ml @ 0.5 mls/hr Q24H IV 02/09/25 01:30 02/09/25 03:27 6 MLS/HR Dextrose 50 ml UD PRN IV 02/09/25 01:30 Diagnostic Test (Pha) 1 strip Q90MIN 02/09/25 01:30 02/09/25 03:27 1 STRIP Insulin Glargine 15 units DAILY SC 02/10/25 10:00 Atorvastatin Calcium 40 mg HS PO 02/09/25 22:00 Hydrocortisone Sodium Succinate 50 mg Q8HR IV 02/09/25 06:00 Potassium Chloride/Sodium Chloride 1,000 ml @ 75 mls/hr [id number] IV 02/09/25 03:00 02/09/25 03:00 75 MLS/HR Exam Vital Signs Vital Signs Date Time Temp Pulse Resp B/P (MAP) Pulse Ox O2 Delivery O2 Flow Rate FiO2 02/09/25 04:00 0 67/20 (36) 02/09/25 03:55 39 02/09/25 03:45 99 02/09/25 03:04 Hi-Flow Heated NC+ 30 30 30 02/08/25 19:45 96.8 96.8 Exam General examination- patient in respiratory distress HEENT- PEERLA, no acute nasal discharge Cardiovascular- S1-S2 audible, systolic murmur+ Respiratory- with the lung crackles+ Gastrointestinal-nontender, bowel sound+. Nondistended Musculoskeletal-no acute joint swelling or tenderness or redness Lower extremity- leg edema Neurological- cranial nerves intact, no acute dysarthria or dysphagia Psychiatry- denies depression or SI or HI Skin- no acute rash or purpura Labs/Xrays Labs Test 02/09/25 03:08 02/09/25 01:39 02/09/25 01:27 02/08/25 19:54 Range/Units POC Glucose 481 *H 70-106 mg/dl Sodium Level 136 136-145 mmol/L Potassium Level 5.1 3.5-5.1 mmol/L Chloride Level 98 98-107 mmol/L Carbon Dioxide Level 10 L 20-31 mmol/L Anion Gap 28 H 5-15 Blood Urea Nitrogen 19 9-23 mg/dL Creatinine 1.42 H 0.550-1.02 mg/dL Glomerular Filtration Rate Calc 36 >90 mL/min BUN/Creatinine Ratio 13.4 10.0-20.0 Serum Glucose 530 *H 74-106 mg/dL Calcium Level 9.1 8.7-10.4 mg/dL Phosphorus Level 9.3 H 2.4-5.1 mg/dL Magnesium Level 2.8 H 1.6-2.6 mg/dL Total Bilirubin 2.6 H 0.2-1.0 mg/dL Aspartate Amino Transferase (AST) 1233 H 13-40 U/L Alanine Aminotransferase (ALT) 498 H 7-40 U/L Alkaline Phosphatase 150 H 46-116 U/L Total Protein 5.9 5.7-8.2 g/dL Albumin 3.7 3.2-4.8 g/dL Beta-Hydroxybutyric Acid 0.427 H < 0.4 mmol/L Blood Gas Specimen Type Arterial Blood Gas Sample Site Right radial Blood Gas Patient Temperature 37.0 Arterial Blood Date Drawn [id number] Arterial Blood pH 7.218 *L 7.350-7.450 Arterial Blood Partial Pressure CO2 14.2 *L 32.0-45.0 mmHg Arterial Blood Partial Pressure O2 421.7 *H 83.0-108.0 mmHg Arterial Blood HCO3 5.7 L 21.0-28.0 mmol/L Arterial Blood Oxygen Saturation 99.6 H 94.0-98.0 % Arterial Blood Base Excess -19.4 L -2.0-3.0 mmol/L Arterial Blood Oxyhemoglobin 98.7 H 94.0-98.0 % Arterial Blood Carboxyhemoglobin 0.3 L 0.5-1.5 % Arterial Blood Methemoglobin 0.6 0.0-1.5 % Olivier Test Yes Blood Gas Total Hemoglobin 14.70 12.0-16.0 g/dL Blood Gas Liter Flow 40.00 Blood Gas Modality High flow FiO2 % 40.0 Blood Gas Critical Value Read Back Yes Blood Gas Notified Whom Blood Gas Notified Time [id number] Blood Gas Notified By White Blood Count 10.0 4.4-10.8 10^3/uL Red Blood Count 4.51 4.0-5.20 10^6/uL Hemoglobin 13.2 12.2-16.2 g/dL Hematocrit 41.3 36.0-46.0 % Mean Corpuscular Volume 91.6 80.0-100.0 fL Mean Corpuscular Hemoglobin 29.4 28.0-32.0 pg Mean Corpuscular Hemoglobin Concent 32.1 32.0-36.0 g/dL Red Cell Distribution Width 14.1 11.8-14.3 % Platelet Count 157 140-450 10^3/uL Mean Platelet Volume 9.7 6.9-10.8 fL Neutrophils (%) (Auto) 88.3 H 37.0-80.0 % Lymphocytes (%) (Auto) 8.9 L 10.0-50.0 % Monocytes (%) (Auto) 2.6 0.0-12.0 % Eosinophils (%) (Auto) 0.0 0.0-7.0 % Basophils (%) (Auto) 0.2 0.0-2.0 % Neutrophils # (Auto) 8.8 H 1.6-8.6 10 ^3/uL Lymphocytes # (Auto) 0.9 0.4-5.4 10 ^3/uL Monocytes # (Auto) 0.3 0-1.3 10 ^3/uL Eosinophils # (Auto) 0 0-0.8 10 ^3/uL Basophils # (Auto) 0 0-0.2 10 ^3/uL Nucleated Red Blood Cells 0.1 % Prothrombin Time 11.3 9.3-11.8 sec Prothrombin Time INR 1.07 0.9-1.15 Activated Partial Thromboplast Time 25.9 24.5-34.5 SEC Lactic Acid Level 7.2 *H 0.4-2.0 mmol/L Troponin I High Sensitivity 94532 *H </=34 ng/L Assessment/Plan Assessment/Plan Assessment and plan Acute chest pain likely due to STEMI Acute STEMI Suspected acute heart failure systolic versus diastolic Acute hypoxic respiratory failure likely due to acute heart failure/aspiration pneumonia Cardiogenic shock Suspected septic shock Lactic acidosis Suspected aspiration pneumonitis Metabolic encephalopathy likely due to DKA/aspiration pneumonitis Suspected metabolic acidosis with respiratory compensation, CONCHITA likely due to VMN Uncontrolled diabetes mellitus/diabetic ketoacidosis Hypertension Hyponatremia Transaminitis CONCHITA likely due to VMN Dementia Plan Status post cardiology consult, patient was seen by Dr. Caruso Patient's family denied intervention for STEMI Plan is to continue medical management NPO as patient aspirated Continue vasopressor as prescribed Continue IV fluid prescribed On Levophed, dopamine, dobutamine Hydrocortisone 50 mg IV t.i.d. Ordered insulin drip as per protocol Ordered antibiotic meropenem and vancomycin as per pharmacy protocol repeat CBC, CMP, chest x-ray, ABG Pending Echo 2D Status post central line done in the right internal jugular vein In ICU status Goals of care, Code status DNI/DNR ; discussed with >15 minutes PUD prophylaxis: Pantoprazole DVT prophylaxis: heparin Plan discussed with Dr. Mcrae , nursing staff, Total time spent on patient evaluation, chart review, assessment and plan, discussion discussion >65 minutes Plan discussed with: Patient, Daughter, Son (RN), Other My Orders Orders - MAKSIM ESTRADA RESIDENT Procedure Category Date Status Time Admit ADMIT 02/08/25 Transmitted 23:59 Npo (Nothing By DIET 02/09/25 Transmitted Mouth) Diet Breakfast Nitroglycerin PHA 02/09/25 In Process Sublingual (Ntrostat 00:00 Morphine Sulfate PHA 02/09/25 In Process Injection 00:00 Oxygen By Nasal RT 02/08/25 Transmitted Cannula 23:59 Stat Ekg For Chest CHRISTIANO 02/08/25 In Process Pain 23:59 Notify Md Of Changes CHRISTIANO 02/08/25 In Process From Base 23:59 Emd Teacher For CHRISTIANO 02/08/25 In Process 24 Hours 23:59 Emergency Dysrhythmia CHRISTIANO 02/08/25 In Process Protocol 23:59 Rhythm Strips Once CHRISTIANO 02/08/25 In Process Every Shift 23:59 Echo 2d Mode Cardiac US 02/09/25 Logged DOP 00:53 Transfer Orders XFER 02/09/25 Transmitted 00:54 Glucose Blood PHA 02/09/25 In Process (Accu-Chek Comfort 04:00 Dextrose 50% Syringe PHA 02/09/25 In Process 01:00 Speech Pathologist CHRISTIANO 02/09/25 In Process Eval: Roderick 01:01 Chest Portable XY 02/09/25 Resulted 04:00 Abg W/ Co-Ox RT 02/09/25 Logged 01:19 Meropenem 500mg PHA 02/09/25 In Process Premix (Merrem 10:00 Vancomycin Per PHA 02/09/25 Pending Pharmacy 01:30 Insulin Drip Protocol CHRISTIANO 02/09/25 In Process Insulin Drip 100 PHA 02/09/25 In Process Unit/100ml (Myxredlin 01:30 Dextrose 50% Syringe PHA 02/09/25 In Process 01:30 Glucose Blood PHA 02/09/25 In Process (Accu-Chek Comfort 01:30 Neurological CHRISTIANO 02/09/25 In Process Assessment 01:29 Vs/Hemodynamics CHRISTIANO 02/09/25 In Process 01:29 Insulin Lantus PHA 02/10/25 In Process (Glargine) (Lantus) 10:00 Blood Culture NOÉ 02/09/25 In Process 01:41 Atorvastatin (Lipitor) PHA 02/09/25 In Process 22:00 Hydrocortisone PHA 02/09/25 In Process Succinate Inj 06:00 Chest Xray 1 View XY 02/09/25 Resulted 02:34 Sod Chl 0.9%/ Kcl PHA 02/09/25 In Process 20meq 03:00 Basic Metabolic Panel LAB 02/10/25 Verified 00:00 Basic Metabolic Panel LAB 02/10/25 Verified 02:00 Basic Metabolic Panel LAB 02/10/25 Verified 04:00 Basic Metabolic Panel LAB 02/10/25 Verified 06:00 Basic Metabolic Panel LAB 02/10/25 Verified 08:00 Basic Metabolic Panel LAB 02/10/25 Verified 10:00 Basic Metabolic Panel LAB 02/10/25 Verified 12:00 Basic Metabolic Panel LAB 02/10/25 Verified 14:00 Basic Metabolic Panel LAB 02/10/25 Verified 16:00 Basic Metabolic Panel LAB 02/10/25 Verified 18:00 Basic Metabolic Panel LAB 02/10/25 Verified 20:00 Basic Metabolic Panel LAB 02/10/25 Verified 22:00 Communication Order ORDERS 02/09/25 Transmitted 03:08 Date of Service: February 09, 2025 Billing Provider: MAUREEN MCRAE MD Common Visit Codes: [id number] INP/OBS CARE (HIGH) Secondary Visit Codes: [id number]-[id number] CARE PLAN 30 MINUTES MAKSIM ESTRADA RESIDENT February 09, 2025 06:25
--- NOTE | 2025-02-09 06:28 | DVHDS2 ---
Summary Date of Admission February 08, 2025 at 23:59 Date and Time of Expiration: February 09, 2025 04:03 Reason for Admission: Acute chest pain due to STEMI Labs/Diagnostic Data: Laboratory Results Test 02/09/25 03:08 02/09/25 01:39 02/09/25 01:27 02/08/25 19:54 POC Glucose 481 mg/dl (70-106) Sodium Level 136 mmol/L (136-145) Potassium Level 5.1 mmol/L (3.5-5.1) Chloride Level 98 mmol/L (98-107) Carbon Dioxide Level 10 mmol/L (20-31) Anion Gap 28 (5-15) Blood Urea Nitrogen 19 mg/dL (9-23) Creatinine 1.42 mg/dL (0.550-1.02) Glomerular Filtration Rate Calc 36 mL/min (>90) BUN/Creatinine Ratio 13.4 (10.0-20.0) Serum Glucose 530 mg/dL (74-106) Calcium Level 9.1 mg/dL (8.7-10.4) Phosphorus Level 9.3 mg/dL (2.4-5.1) Magnesium Level 2.8 mg/dL (1.6-2.6) Total Bilirubin 2.6 mg/dL (0.2-1.0) Aspartate Amino Transferase (AST) 1233 U/L (13-40) Alanine Aminotransferase (ALT) 498 U/L (7-40) Alkaline Phosphatase 150 U/L (46-116) Total Protein 5.9 g/dL (5.7-8.2) Albumin 3.7 g/dL (3.2-4.8) Beta-Hydroxybutyric Acid 0.427 mmol/L (< 0.4) Blood Gas Specimen Type Arterial Blood Gas Sample Site Right radial Blood Gas Patient Temperature 37.0 Arterial Blood Date Drawn [id number] Arterial Blood pH 7.218 (7.350-7.450) Arterial Blood Partial Pressure CO2 14.2 mmHg (32.0-45.0) Arterial Blood Partial Pressure O2 421.7 mmHg (83.0-108.0) Arterial Blood HCO3 5.7 mmol/L (21.0-28.0) Arterial Blood Oxygen Saturation 99.6 % (94.0-98.0) Arterial Blood Base Excess -19.4 mmol/L (-2.0-3.0) Arterial Blood Oxyhemoglobin 98.7 % (94.0-98.0) Arterial Blood Carboxyhemoglobin 0.3 % (0.5-1.5) Arterial Blood Methemoglobin 0.6 % (0.0-1.5) Olivier Test Yes Blood Gas Total Hemoglobin 14.70 g/dL (12.0-16.0) Blood Gas Liter Flow 40.00 Blood Gas Modality High flow FiO2 % 40.0 Blood Gas Critical Value Read Back Yes Blood Gas Notified Whom Blood Gas Notified Time [id number] Blood Gas Notified By White Blood Count 10.0 10^3/uL (4.4-10.8) Red Blood Count 4.51 10^6/uL (4.0-5.20) Hemoglobin 13.2 g/dL (12.2-16.2) Hematocrit 41.3 % (36.0-46.0) Mean Corpuscular Volume 91.6 fL (80.0-100.0) Mean Corpuscular Hemoglobin 29.4 pg (28.0-32.0) Mean Corpuscular Hemoglobin Concent 32.1 g/dL (32.0-36.0) Red Cell Distribution Width 14.1 % (11.8-14.3) Platelet Count 157 10^3/uL (140-450) Mean Platelet Volume 9.7 fL (6.9-10.8) Neutrophils (%) (Auto) 88.3 % (37.0-80.0) Lymphocytes (%) (Auto) 8.9 % (10.0-50.0) Monocytes (%) (Auto) 2.6 % (0.0-12.0) Eosinophils (%) (Auto) 0.0 % (0.0-7.0) Basophils (%) (Auto) 0.2 % (0.0-2.0) Neutrophils # (Auto) 8.8 10 ^3/uL (1.6-8.6) Lymphocytes # (Auto) 0.9 10 ^3/uL (0.4-5.4) Monocytes # (Auto) 0.3 10 ^3/uL (0-1.3) Eosinophils # (Auto) 0 10 ^3/uL (0-0.8) Basophils # (Auto) 0 10 ^3/uL (0-0.2) Nucleated Red Blood Cells 0.1 % Prothrombin Time 11.3 sec (9.3-11.8) Prothrombin Time INR 1.07 (0.9-1.15) Activated Partial Thromboplast Time 25.9 SEC (24.5-34.5) Lactic Acid Level 7.2 mmol/L (0.4-2.0) Troponin I High Sensitivity 29838 ng/L (</=34) Other Laboratory Tests 02/09/25 01:39 02/08/25 19:54 Brief Hx & Hospital Course: History of Present Illness: 89-year-old female with past medical history of dementia, diabetes mellitus, and hypertension presented to the ED via EMS for chest pain described as central and crushing in nature. Patient was a poor historian due to cognitive impairment; history was obtained from family and chart review. Initial evaluation revealed hypotension, bradycardia (HR ~30s), and glucose of 524 mg/dL. EKG demonstrated ST-elevation [place]. She also reported nausea, vomiting, diaphoresis, and altered mentation. Labs were notable for hyperglycemia (glucose 530), elevated troponin I (19834 ng/L), lactic acidosis (lactate 7.2 mmol/L), high beta-hydroxybutyrate (0.427), metabolic acidosis (ABG: pH 7.21, HCO3 421.7), and transaminitis (AST 1233, ALT 498). ABG showed respiratory compensation and worsening hypoxia despite high flow O2. Hospital Course: Patient was managed in the ED for acute STEMI and associated cardiogenic shock, after discussion with the patient�s daughter (POA), the decision was made to pursue medical management only. She received aspirin, Zofran, IV fluids, insulin, heparin, norepinephrine, dopamine, and was started on broad-spectrum antibiotics (cefepime, vancomycin). Despite these measures, the patient�s blood pressure remained critically low, and she remained bradycardic with signs of ongoing myocardial infarction. The patient was DNR/DNI. A central line was placed for vasopressor support, but her condition continued to deteriorate. Patient ultimately became unresponsive around 04:00 on 02/09/2025, with absent pulses, fixed and dilated pupils, and no respiratory effort. She was pronounced by ER physician. Time of : 02/09/2025 at 04:03 AM Discharge Disposition: Cause of : Cardiogenic shock secondary to acute ST-elevation myocardial infarction with multi-organ failure including DKA and aspiration pneumonia. Operations or Procedures [place] [address] Ph: [phone] DIAGNOSTIC IMAGING Diagnostic Imaging Report : [id number] Signed PATIENT: CAREY COBOS ACCT: [id number] UNIT: [id number] : 1935 LOC: ER ROOM / BED: / AGE / SEX: 89 / F ADM STATUS: REG ER SERVICE 35 ORDERING PHYSICIAN: JERRY MCCLURE MD PROCEDURE(s): CXRP - CHEST PORTABLE REASON: CP ORDER NUMBER(s): [id number], ACCESSION NUMBER(s): [id number] EXAM: XR Chest, 1 View CLINICAL INDICATION: CP TECHNIQUE: Frontal view of the chest. COMPARISON: None FINDINGS: LUNGS AND PLEURAL SPACES: Unremarkable. No consolidation. No pneumothorax. HEART: Cardiomegaly without overt failure. MEDIASTINUM: Unremarkable. Normal mediastinal contour. BONES/JOINTS: Unremarkable. No acute fracture. OTHER FINDINGS: . . IMPRESSION: Cardiomegaly without overt failure. ATED BY: ESTHER CORBIN MD DICTATED DATE/TIME: 02/08/252001 SIGNED BY: ESTHER CORBIN MD SIGNED DATE/TIME: 02/08/252001 CC: [place] [address] Ph: [phone] DIAGNOSTIC IMAGING Diagnostic Imaging Report : [id number] Signed PATIENT: CAREY COBOS ACCT: [id number] UNIT: [id number] : 1935 LOC: OVERFLOW ROOM / BED: [facility] [place] / A AGE / SEX: 89 / F ADM STATUS: ADM IN SERVICE 3 ORDERING PHYSICIAN: MAKSIM ESTRADA PROCEDURE(s): CXR1 - CHEST XRAY 1 VIEW REASON: line assessment ORDER NUMBER(s): [id number], ACCESSION NUMBER(s): [id number] CHEST RADIOGRAPH Indication: line assessment Technique: Single frontal view of the chest was obtained COMPARISON: XY CHEST PORTABLE on DOS: 02/09/25, XY CHEST PORTABLE on DOS: 02/08/25 FINDINGS: Lines and Tubes: Right subclavian central venous access catheter tip within the right atrium. Lungs: Diminished lung volumes with exaggeration of the pulmonary vasculature. No evidence of focal consolidation. Pleura: No effusion. No pneumothorax. Cardiomediastinal contours: Unremarkable Bones: Unremarkable IMPRESSION: 1. No acute disease. ATED BY: MANUEL HARDEN MD DICTATED DATE/TIME: 02/09/25322 SIGNED BY: MANUEL HARDEN MD SIGNED DATE/TIME: 02/09/25322 CC: Final Diagnosis/Problems List Acute chest pain likely due to STEMI Acute STEMI Suspected acute heart failure systolic versus diastolic Acute hypoxic respiratory failure likely due to acute heart failure/aspiration pneumonia Cardiogenic shock Suspected septic shock Lactic acidosis Suspected aspiration pneumonitis Metabolic encephalopathy likely due to DKA/aspiration pneumonitis Suspected metabolic acidosis with respiratory compensation, Uncontrolled diabetes mellitus/diabetic ketoacidosis Hypertension Hyponatremia Transaminitis CONCHITA likely due to VMN Dementia Discharge Disposition: Date of Service: February 09, 2025 Billing Provider: MAUREEN MCRAE MD Common Visit Codes: 38204-VJC/OBS DISCH DAY >30min MAKSIM ESTRADA RESIDENT February 09, 2025 06:28 MAURENE MCRAE MD February 10, 2025 18:27
[2025-02-09] MEDS ORDERED: MEROPENEM 500MG PREMIX 50 ML IV SCH (10:00)
[2025-02-09] MEDS ORDERED: ATORVASTATIN 20 MG TAB PO SCH (22:00)
[2025-02-10] MEDS ORDERED: INSULIN LANTUS (GLARGINE) 1 /0.01ml (100units/ml) SC SCH (10:00)
== END 2025-02-09 04:03 | DRG 871 ==
LOC: ER 19:34 → EDBD 19:34 → OVERFLOW 23:59
PROVIDERS: ADMIT Internal Medicine; ATTEND Emergency Medicine
PROC: 5A0935A Assistance with Respiratory Ventilation, Less than 24 Consecutive Hours, High Flow/Velocity Cannula (ICD-10-PCS; principal; 2025-02-08)
PROC: 5A0935A Assistance with Respiratory Ventilation, Less than 24 Consecutive Hours, High Flow/Velocity Cannula (ICD-10-PCS; 2025-02-09)
DX: A41.9 Sepsis, unspecified organism (principal); E11.10 Type 2 diabetes mellitus with ketoacidosis without coma; G93.41 Metabolic encephalopathy; I21.19 ST elevation (STEMI) myocardial infarction involving other coronary artery of inferior wall; I50.41 Acute combined systolic (congestive) and diastolic (congestive) heart failure; J96.01 Acute respiratory failure with hypoxia; R65.21 Severe sepsis with septic shock; J69.0 Pneumonitis due to inhalation of food and vomit; N17.0 Acute kidney failure with tubular necrosis; E87.1 Hypo-osmolality and hyponatremia; R57.0 Cardiogenic shock; I48.91 Unspecified atrial fibrillation; F03.90 Unspecified dementia, unspecified severity, without behavioral disturbance, psychotic disturbance, mood disturbance, and anxiety; R00.1 Bradycardia, unspecified; Z66 Do not resuscitate; I11.0 Hypertensive heart disease with heart failure; R74.01 Elevation of levels of liver transaminase levels; Z88.0 Allergy status to penicillin
CPT/HCPCS: 36415; 36600; 71045; 80053; 82010; 82805; 82962; 83605; 83735; 84100; 84484; 85025; 85610; 85730; 86850; 86900; 86901; 87040; 99291; G0378; J1815; J2250